=== PATIENT | male | born 1960 | race Caucasian/White ===

== ENCOUNTER → 2016-02-28 | Outpatient (CLI) | payer BC ==
[~2016-02-28] MED LIST: FAMO40TA6 PO; LISI20TA PO
== END | disposition home or self-care (01) ==
LOC: C.RDSM 08:00
PROVIDERS: ATTEND Family Medicine
DX: M79.672 Pain in left foot (principal)

== ENCOUNTER → 2016-04-01 | Outpatient (CLI) | payer OTHER, BC ==
--- NOTE | 2016-04-01 14:26 | DIAGNOSTIC IMAGING REPORT ---
LEFT HIP UNILATERAL 2 VIEWS CLINICAL HISTORY: L HIP PAIN, FALL trauma. Pain. COMPARISON: None. DISCUSSION: The bones and joint spaces appear intact. There is no evidence of fracture, dislocation or bony disease. Mild degenerative change. No evidence for acetabular protrusion. IMPRESSION: No acute process. Mild degenerative change. Electronically signed by: Washington Humphrey M.D. 04/01/2016 2:25 PM Dictated Date/Time: 04/01/2016 2:24 PM
== END | disposition home or self-care (01) ==
LOC: C.RAD1850 14:06
PROVIDERS: ATTEND Nurse Practitioner Adult Health
DX: M25.552 Pain in left hip (principal)